=== PATIENT | female | born 1995 | race African-American/Black ===

== ENCOUNTER 2022-08-03 13:10 | Day surgery (SDC) | payer OTHER ==
[2022-08-03 13:41] VITALS: BMI 31.7
[2022-08-03] MEDS ORDERED: hydrALAZINE 20 MG/ML VIAL SLOW IVP PRN (13:57)
[2022-08-03 14:20] LABS: Bilirubin Neg (Negative); Blood, Urine Negative (Negative); Clarity Slightly Cloudy (Clear); Glucose, Urine (Dipstick) Normal (Negative); Ketone, Urine Negative (Negative); Leukocyte 500 (Negative); Nitrite Negative (Negative); Protein, Urine (Dipstick) Negative (Neg-Trace); Specific Gravity, Urine 1.005 (1.005-1.030); Urobilinogen Normal mg/dL (Less than 2)
[2022-08-03 14:28] LABS: RBC/HPF 0-3 HPF (0-3)
[2022-08-03 14:29] LABS: Bacteria/HPF 1+ HPF (None Seen); CAUTI Indications for Culture Pelvic or flank pain; WBC/HPF 0-3 HPF (0-3); Yeast-Hyphae Rare HPF (None Seen)
[2022-08-03 14:30] LABS: Oval Fat Bodies/HPF Rare HPF (None Seen)
[2022-08-03 14:31] LABS: Urine Culture Reflex No No
== END 2022-08-03 15:04 | disposition home or self-care (01) ==
LOC: CSHLD/OP 13:10
PROVIDERS: ATTEND Family Medicine
DX: O47.03 False labor before 37 completed weeks of gestation, third trimester (principal); O26.893 Other specified pregnancy related conditions, third trimester; R10.30 Lower abdominal pain, unspecified; O98.813 Other maternal infectious and parasitic diseases complicating pregnancy, third trimester; B37.49 Other urogenital candidiasis; Z3A.34 34 weeks gestation of pregnancy
CPT/HCPCS: 81001; 99283

== ENCOUNTER 2022-08-13 02:06 | Day surgery (SDC) | payer OTHER ==
[2022-08-13 02:39] VITALS: BMI 32.5
[2022-08-13 03:37] LABS: Fetal Membranes Rupture No Membranes Rupture (No Rupture)
== END 2022-08-13 05:39 | disposition home or self-care (01) ==
LOC: CSHLD/OP 02:06
PROVIDERS: ATTEND Family Medicine
DX: Z03.71 Encounter for suspected problem with amniotic cavity and membrane ruled out (principal); O47.03 False labor before 37 completed weeks of gestation, third trimester; O23.593 Infection of other part of genital tract in pregnancy, third trimester; B96.89 Other specified bacterial agents as the cause of diseases classified elsewhere; Z79.899 Other long term (current) drug therapy; Z79.82 Long term (current) use of aspirin; Z3A.35 35 weeks gestation of pregnancy
CPT/HCPCS: 84112; 87480; 87510; 87660; 99282

== ENCOUNTER 2022-08-31 13:32 | Inpatient (IN) | payer OTHER ==
[2022-08-31] MEDS ORDERED: ePHEDrine 50 MG/ML VIAL ONE (14:19)
[2022-08-31] MEDS ORDERED: Bupivacaine PF 0.5% 30 ML VIAL ONE (14:19)
[2022-08-31] MEDS ORDERED: Bupivacaine HCl 0.5%/Epinephrine 1:200,000/PF 30 ml Vial ONE (14:19)
[2022-08-31] MEDS ORDERED: Lidocaine 2% MPF 10 ML AMP (For Epidural Use) ONE (14:19)
[2022-08-31] MEDS ORDERED: Bupivacaine 0.25% HCL 30 ML VIAL ONE (14:19)
[2022-08-31] MEDS ORDERED: Lidocaine 1% (PF) 30 ML VIAL SC PRN (14:36)
[2022-08-31] MEDS ORDERED: Misoprostol 200 MCG TAB PR PRN (14:36)
[2022-08-31] MEDS ORDERED: Ondansetron PF 4 MG/2 ML Vial IVP PRN (14:36)
[2022-08-31] MEDS ORDERED: Ibuprofen 800 MG TAB PO PRN (14:36)
[2022-08-31] MEDS ORDERED: hydrALAZINE 20 MG/ML VIAL SLOW IVP PRN (14:36)
[2022-08-31] MEDS ORDERED: HYDROcodone/Acetaminophen 5/325 mg Tablet PO PRN ×2 (14:36)
[2022-08-31] MEDS ORDERED: Promethazine HCl 25 MG/ML VIAL IM PRN (14:36)
[2022-08-31] MEDS ORDERED: Butorphanol Tartrate 1 MG/ML VIAL SLOW IVP PRN (14:36)
[2022-08-31] MEDS ORDERED: NS w/ Oxytocin 30 units 500 ML IV SCH ×3 (14:45)
[2022-08-31 15:26] VITALS: BMI 34.7
[2022-08-31 16:16] LABS: Hemoglobin 11.7 g/dL (12.0-15.5); Mean Corpuscular HGB CONC 33.5 g/dL (32.0-36.0); Mean Corpuscular Hemoglobin 31.6 pg (27.0-33.0); Mean Corpuscular Volume 94.3 fl (81.6-98.3); Mean Platelet Volume 11.4 fl (7.4-10.4); Platelet Count 219 10x3/uL (150-450); RBC Distribution Width 12.6 % (11.5-14.5); White Blood Cell (WBC) Count 7.8 10x3/uL (3.5-10.5)
[2022-08-31 16:32] LABS: ALT (SGPT) 24 U/L (8-55); AST (SGOT) 27 U/L (5-34); Albumin 3.8 g/dL (3.5-5.0); Alkaline Phosphatase 126 U/L (40-110); Anion Gap 15 mmol/L (10-20); BUN (Urea Nitrogen) 4 mg/dL (7.0-18.7); Bilirubin, Total 0.8 mg/dL (0.2-1.2); Calc. Creatinine Clearance 165 mL/min (70-130); Calcium 9.2 mg/dL (7.8-10.44); Carbon Dioxide 22 mmol/L (22-29); Chloride 103 mmol/L (98-107); Estimated GFR 112; Globulin 2.8 g/dL (2.4-3.5); Glucose 114 mg/dL (70-105); Potassium 3.9 mmol/L (3.5-5.1); Protein, Total 6.6 g/dL (6.0-8.3); Sodium 136 mmol/L (136-145)
[2022-08-31 16:49] LABS: HBSAg Index 0.14 S/CO (0-0.99); Hep B Surf Ag - L&D Non-Reactive S/CO (NonReactive)
[2022-08-31 16:50] LABS: Syphilis Antibody Nonreactive (Nonreactive); Syphilis Antibody Index 0.05 S/CO (<1.00 Non-Reactive)
[2022-08-31] MEDS ORDERED: Misoprostol 100 MCG TAB ONE (17:07)
[2022-08-31 17:08] LABS: SARS-CoV-2 NAA Rapid Test Not Detected (NotDetected)
[2022-08-31] MEDS: Misoprostol 100 MCG TAB VAG SCH (17:20)
[2022-09-01] MEDS ORDERED: Magnesium Sulfate 20 gm/500 ml 20 GM/500 ML BAG ONE ×2 (03:03→11:53)
[2022-09-01] MEDS: Misoprostol 100 MCG TAB VAG SCH ×2 (08:06→19:07)
[2022-09-01] MEDS ORDERED: Fentanyl 2 mcg/Bup 0.1% Cadd 100 ML ONE (14:14)
[2022-09-01] MEDS ORDERED: Magnesium Sulfate 20 gm/500 ml 4 GM/100 ML BAG IVPB ONE (14:15)
[2022-09-01] MEDS ORDERED: Magnesium Sulfate 20 gm/500 ml 20 GM/500 ML BAG IVPB PRN (14:15)
[2022-09-01] MEDS ORDERED: Ondansetron PF 4 MG/2 ML Vial IVP PRN (16:31)
[2022-09-01] MEDS ORDERED: Naloxone HCl 0.4 mg/ml Vial IVP PRN ×2 (16:31)
[2022-09-01] MEDS ORDERED: Moisturizing Cream (Eucerin) 113 GM JAR TOP PRN (16:31)
[2022-09-01] MEDS ORDERED: ePHEDrine Sulfate 50 MG/10 ML VIAL SLOW IVP PRN (16:31)
[2022-09-01] MEDS ORDERED: Promethazine HCl 25 MG/ML VIAL IM PRN (16:31)
[2022-09-01] MEDS ORDERED: Lactated Ringer's 500 ML IV PRN (16:31)
[2022-09-01] MEDS ORDERED: Acetaminophen 325 MG TAB PO PRN (16:31)
[2022-09-01] MEDS ORDERED: Communication Order-Pharmacy FS SCH (16:45)
[2022-09-01] MEDS ORDERED: Fentanyl 2 mcg/Bupivacaine 0.1% Cassette 100 ML EPIDURAL SCH (16:45)
[2022-09-01] MEDS ORDERED: Fentanyl 100 MCG/2 ML VIAL ONE (18:16)
[2022-09-01] MEDS: Lactated Ringer's 1,000 ML IV SCH ×2 (19:06→19:07)
[2022-09-02] MEDS ORDERED: Fentanyl 100 MCG/2 ML VIAL ONE ×2 (03:53→07:53)
[2022-09-02] MEDS ORDERED: Lidocaine 1% PF 10 ML AMP ONE (05:59)
[2022-09-02] MEDS ORDERED: Famotidine/PF 20 mg/2ml Vial ONE (07:28)
[2022-09-02] MEDS ORDERED: Sodium Chloride 0.9% 100 ML ONE (07:28)
[2022-09-02] MEDS ORDERED: CEFAZOLIN 2 GM VIAL ONE (07:28)
[2022-09-02] MEDS ORDERED: Azithromycin 500 MG VIAL ONE (07:28)
[2022-09-02] MEDS ORDERED: Morphine PF 10 MG/10 ML VIAL ONE (07:52)
[2022-09-02] MEDS ORDERED: Tranexamic Acid 1,000 MG/10 ML VIAL ONE (07:58)
[2022-09-02] MEDS ORDERED: Misoprostol 200 MCG TAB ONE (07:58)
[2022-09-02] MEDS ORDERED: Carboprost 250 MCG/ML AMP ONE (07:59)
[2022-09-02] MEDS ORDERED: ePHEDrine Sulfate 50 MG/10 ML VIAL ONE (08:00)
[2022-09-02] MEDS ORDERED: Phenylephrine 10 MG/ML VIAL ONE (08:00)
[2022-09-02] MEDS ORDERED: Ketorolac Tromethamine 30 MG/ML VIAL ONE ×3 (08:18→15:33)
[2022-09-02] MEDS ORDERED: Ondansetron PF 4 MG/2 ML Vial ONE (08:18)
[2022-09-02] MEDS ORDERED: Oxytocin 10 UNITS/ML VIAL ONE (08:18)
[2022-09-02] MEDS ORDERED: Midazolam HCl 2 mg/2 ml Vial ONE (08:19)
[2022-09-02] MEDS ORDERED: Naloxone HCl 0.4 mg/ml Vial IV PRN (09:12)
[2022-09-02] MEDS ORDERED: Naloxone HCl 0.4 mg/ml Vial IVP PRN ×2 (09:12)
[2022-09-02] MEDS ORDERED: diphenhydrAMINE 50 MG/ML VIAL IVP PRN (09:12)
[2022-09-02] MEDS ORDERED: Promethazine HCl 25 MG SUPP PR PRN (09:12)
[2022-09-02] MEDS ORDERED: Promethazine HCl 25 MG/ML VIAL IM PRN ×2 (09:12→15:49)
[2022-09-02] MEDS ORDERED: Moisturizing Cream (Eucerin) 113 GM JAR TOP PRN (09:12)
[2022-09-02] MEDS ORDERED: Ondansetron PF 4 MG/2 ML Vial IVP PRN ×2 (09:12→15:49)
[2022-09-02] MEDS ORDERED: Communication Order-Pharmacy FS SCH (09:15)
[2022-09-02] MEDS: Misoprostol 100 MCG TAB VAG SCH (11:19)
[2022-09-02] MEDS: diphenhydrAMINE 50 MG/ML VIAL IVP PRN ×2 (11:54→15:39)
[2022-09-02] MEDS: Ketorolac Tromethamine 30 MG/ML VIAL IVP SCH ×2 (15:39→21:16)
[2022-09-02] MEDS ORDERED: Boostrix 0.5 ML (Tdap) VIAL (>/=7 yrs of age) IM ONE (15:49)
[2022-09-02] MEDS ORDERED: Labetalol HCl 100 MG/20 ML VIAL SLOW IVP PRN (15:49)
[2022-09-02] MEDS ORDERED: diphenhydrAMINE 25 MG CAP PO PRN (15:49)
[2022-09-02] MEDS ORDERED: HYDROcodone/Acetaminophen 5/325 mg Tablet PO PRN ×3 (15:49→21:15)
[2022-09-02] MEDS ORDERED: Lanolin Ointment 7 GM TUBE TOP PRN (15:49)
[2022-09-02] MEDS ORDERED: Lorazepam 2 MG/ML VIAL SLOW IVP PRN (15:49)
[2022-09-02] MEDS ORDERED: Calcium Gluc 4.6 MEQ/10 ML (100 MG/ML) SLOW IVP PRN (15:49)
[2022-09-02] MEDS ORDERED: hydrALAZINE 20 MG/ML VIAL SLOW IVP PRN ×2 (15:49)
[2022-09-02] MEDS ORDERED: Bisacodyl 10 MG SUPP PR PRN (15:49)
[2022-09-02] MEDS ORDERED: hydrALAZINE 20 MG/ML VIAL ONE (16:29)
[2022-09-03 04:42] LABS: Hemoglobin 9.7 g/dL (12.0-15.5); Mean Corpuscular HGB CONC 33.8 g/dL (32.0-36.0); Mean Corpuscular Hemoglobin 31.7 pg (27.0-33.0); Mean Corpuscular Volume 93.8 fl (81.6-98.3); Mean Platelet Volume 11.2 fl (7.4-10.4); Platelet Count 196 10x3/uL (150-450); RBC Distribution Width 12.9 % (11.5-14.5); Red Blood Cell (RBC) Count 3.06 10x6/uL (3.90-5.03); White Blood Cell (WBC) Count 18.2 10x3/uL (3.5-10.5)
[2022-09-03] MEDS: Ketorolac Tromethamine 30 MG/ML VIAL IVP SCH ×2 (12:05→15:35)
[2022-09-03] MEDS: Docusate 100 MG CAP PO SCH ×2 (12:06→22:16)
[2022-09-03] MEDS: Prenatal Vitamin 1 TAB PO SCH (12:06)
[2022-09-03] MEDS: Ferrous Sulfate 325 MG TAB PO SCH ×2 (12:06→22:16)
[2022-09-03] MEDS: Simethicone Chewable 80 MG TAB PO PRN ×2 (12:08→16:26)
[2022-09-03] MEDS: HYDROcodone/Acetaminophen 5/325 mg Tablet PO PRN ×2 (12:08→16:26)
[2022-09-03] MEDS: Lactated Ringer's 1,000 ML IV SCH ×2 (12:42→12:45)
[2022-09-03] MEDS: Misoprostol 100 MCG TAB VAG SCH ×2 (12:43→12:45)
[2022-09-03] MEDS ORDERED: NIFEdipine XL 30 MG TAB PO SCH (13:00)
[2022-09-03] MEDS: Ibuprofen 800 MG TAB PO SCH (22:16)
[2022-09-04] MEDS: HYDROcodone/Acetaminophen 5/325 mg Tablet PO PRN ×3 (00:22→20:59)
[2022-09-04] MEDS: Ibuprofen 800 MG TAB PO SCH ×3 (05:39→20:58)
[2022-09-04] MEDS: Ferrous Sulfate 325 MG TAB PO SCH ×2 (08:02→20:58)
[2022-09-04] MEDS: Prenatal Vitamin 1 TAB PO SCH (08:02)
[2022-09-04] MEDS: Docusate 100 MG CAP PO SCH ×2 (08:02→20:58)
[2022-09-04] MEDS ORDERED: NIFEdipine XL 30 MG TAB PO SCH ×2 (09:00→21:00)
[2022-09-04] MEDS: Simethicone Chewable 80 MG TAB PO PRN ×2 (15:47→20:58)
[2022-09-05] MEDS: HYDROcodone/Acetaminophen 5/325 mg Tablet PO PRN (04:16)
[2022-09-05] MEDS: Ibuprofen 800 MG TAB PO SCH ×2 (05:55→16:55)
[2022-09-05] MEDS ORDERED: NIFEdipine XL 60 MG TAB PO SCH (09:00)
[2022-09-05] MEDS: Prenatal Vitamin 1 TAB PO SCH (09:22)
[2022-09-05] MEDS: Docusate 100 MG CAP PO SCH (09:22)
[2022-09-05] MEDS: Ferrous Sulfate 325 MG TAB PO SCH (09:22)
[2022-09-05 16:28] VITALS: BP 144/85; TEMP 98.8
== END 2022-09-05 17:04 | disposition home or self-care (01) | DRG 788 ==
LOC: CSHLD/OP 13:32 → CSHLD 14:36 → CSHPP 09-03 11:45
PROVIDERS: ADMIT Family Medicine; ATTEND Family Medicine
PROC: 3E0P7VZ Introduction of Hormone into Female Reproductive, Via Natural or Artificial Opening (ICD-10-PCS; 2022-08-31)
PROC: 10D00Z1 Extraction of Products of Conception, Low, Open Approach (ICD-10-PCS; principal; 2022-09-02)
DX: O14.14 Severe pre-eclampsia complicating childbirth (principal); Z37.0 Single live birth; Z3A.38 38 weeks gestation of pregnancy; Z20.822 Contact with and (suspected) exposure to COVID-19; O76 Abnormality in fetal heart rate and rhythm complicating labor and delivery; Z79.899 Other long term (current) drug therapy; Z90.89 Acquired absence of other organs
CPT/HCPCS: 36415; 51702; 80053; 85027; 86780; 86850; 86900; 86901; 87340; 99285; J0360; J1200; J1885; J2001; J2250; J2274; J2370; J2405; J2590; J3010; J3475; J3490; S0020; S0028; U0002

== ENCOUNTER 2025-02-23 10:12 | Day surgery (SDC) | payer OTHER, MEDICAID ==
[2025-02-23 10:51] VITALS: BMI 36.2
[2025-02-23 11:39] LABS: Fetal Membranes Rupture No Membranes Rupture (No Rupture)
== END 2025-02-23 12:30 | disposition home or self-care (01) ==
LOC: CSHLD/OP 10:12
PROVIDERS: ATTEND Family Medicine
DX: O47.03 False labor before 37 completed weeks of gestation, third trimester (principal); Z03.71 Encounter for suspected problem with amniotic cavity and membrane ruled out; O34.211 Maternal care for low transverse scar from previous cesarean delivery; O10.913 Unspecified pre-existing hypertension complicating pregnancy, third trimester; O98.813 Other maternal infectious and parasitic diseases complicating pregnancy, third trimester; B37.31 Acute candidiasis of vulva and vagina; O23.593 Infection of other part of genital tract in pregnancy, third trimester; B96.89 Other specified bacterial agents as the cause of diseases classified elsewhere; Z3A.36 36 weeks gestation of pregnancy; Z91.040 Latex allergy status; Z79.899 Other long term (current) drug therapy
CPT/HCPCS: 84112; 87480; 87510; 87660; 99285

== ENCOUNTER 2025-03-01 04:55 | Inpatient (IN) | payer OTHER, MEDICAID ==
[2025-03-01] MEDS ORDERED: Carboprost 250 MCG/ML AMP IM PRN (05:11)
[2025-03-01] MEDS ORDERED: hydrALAZINE 20 MG/ML VIAL SLOW IVP PRN ×2 (05:11→11:15)
[2025-03-01] MEDS ORDERED: Oxytocin 30 units/NS 500 ML 500 ML IV SCH (05:11)
[2025-03-01] MEDS ORDERED: Famotidine/PF 20 mg/2ml Vial SLOW IVP PRN (05:11)
[2025-03-01] MEDS ORDERED: Bicitra 30 ML UDCUP PO PRN (05:11)
[2025-03-01] MEDS ORDERED: Diphenoxylate HCl/Atropine Tablet PO PRN (05:11)
[2025-03-01] MEDS ORDERED: Methylergonovine 0.2 MG/ML VIAL IM PRN (05:11)
[2025-03-01] MEDS ORDERED: Ondansetron PF 4 MG/2 ML Vial IVP PRN ×4 (05:11→11:15)
[2025-03-01] MEDS ORDERED: Tranexamic Acid 1,000 MG/10 ML VIAL IVP PRN (05:11)
[2025-03-01 05:41] LABS: Hematocrit 33.2 % (34.9-44.5); Hemoglobin 11.1 g/dL (12.0-15.5); Mean Corpuscular Hemoglobin 30.7 pg (27.0-33.0); Mean Corpuscular Volume 91.7 fL (81.6-98.3); Platelet Count 211 10x3/uL (150-450); Red Blood Cell (RBC) Count 3.62 10x6/uL (3.90-5.03); White Blood Cell (WBC) Count 7.11 10x3/uL (3.5-10.5)
[2025-03-01 05:57] VITALS: BMI 36.8
[2025-03-01 06:16] LABS: Syphilis Antibody Index 0.09 S/CO (<1.00 Non-Reactive)
[2025-03-01 06:18] LABS: Hep B Surf Ag - L&D Non-Reactive S/CO (NonReactive)
[2025-03-01] MEDS ORDERED: diphenhydrAMINE 50 MG/ML VIAL IVP PRN (06:56)
[2025-03-01] MEDS ORDERED: Ketorolac Tromethamine 30 MG (1 mL) VIAL IVP PRN (06:56)
[2025-03-01] MEDS ORDERED: Meperidine HCl/PF 25 MG (1 mL) VIAL SLOW IVP PRN (06:56)
[2025-03-01] MEDS ORDERED: Communication Order-Pharmacy FS SCH (07:00)
[2025-03-01] MEDS: Ketorolac Tromethamine 30 MG (1 mL) VIAL IVP SCH ×2 (09:26→15:39)
[2025-03-01] MEDS ORDERED: Bisacodyl 10 MG SUPP PR PRN (11:15)
[2025-03-01] MEDS ORDERED: Lanolin Ointment 7 GM TUBE TOP PRN (11:15)
[2025-03-01] MEDS ORDERED: diphenhydrAMINE 25 MG CAP PO PRN (11:15)
[2025-03-01] MEDS: Dexamethasone 10 MG/ML VIAL ONE (14:01)
[2025-03-01] MEDS: CEFAZOLIN 2 GM VIAL ONE ×2 (14:02)
[2025-03-01] MEDS: Ondansetron PF 4 MG/2 ML Vial ONE (14:02)
[2025-03-01] MEDS: PHENYLEPHRINE-NS 100 MCG/ML 10 ML SYRINGE ONE (14:02)
[2025-03-01] MEDS: Oxytocin 10 UNITS/ML VIAL ONE ×2 (14:02→14:03)
[2025-03-01] MEDS: Boostrix 0.5 ML (Tdap) VIAL (>/=7 yrs of age) IM ONE (14:03)
[2025-03-01] MEDS ORDERED: Meperidine HCl/PF 25 MG (1 mL) VIAL IM PRN (19:01)
[2025-03-01] MEDS: Ferrous Sulfate 325 MG TAB PO SCH (19:24)
[2025-03-02 05:59] LABS: Hematocrit 25.3 % (34.9-44.5); Hemoglobin 8.3 g/dL (12.0-15.5); Mean Corpuscular Hemoglobin 30.4 pg (27.0-33.0); Mean Corpuscular Volume 92.7 fL (81.6-98.3); Platelet Count 205 10x3/uL (150-450); Red Blood Cell (RBC) Count 2.73 10x6/uL (3.90-5.03); White Blood Cell (WBC) Count 15.78 10x3/uL (3.5-10.5)
[2025-03-02] MEDS ORDERED: Acetaminophen 325 MG TAB PO PRN (12:29)
[2025-03-02] MEDS: HYDROcodone/Acetaminophen 5/325 mg Tablet PO PRN ×2 (14:09→19:36)
[2025-03-02] MEDS: Ibuprofen 800 MG TAB PO SCH (16:04)
[2025-03-03] MEDS: Simethicone Chewable 80 MG TAB PO PRN (18:49)
[2025-03-04 16:36] VITALS: BP 128/66; TEMP 98.1
== END 2025-03-04 15:45 | disposition home or self-care (01) | DRG 788 ==
LOC: CSHLD 04:55 → CSHPP 11:12
PROVIDERS: ADMIT Family Medicine; ATTEND Family Medicine
PROC: 10D00Z1 Extraction of Products of Conception, Low, Open Approach (ICD-10-PCS; principal; 2025-03-01)
DX: O16.4 Unspecified maternal hypertension, complicating childbirth (principal); Z3A.37 37 weeks gestation of pregnancy; O34.211 Maternal care for low transverse scar from previous cesarean delivery; Z37.0 Single live birth; Z91.040 Latex allergy status
CPT/HCPCS: 51702; 85027; 86780; 86850; 86900; 86901; 87340; C1889; J1100; J1885; J2274; J2590